=== PATIENT | female | born 1980 | race American Indian/Alaskan Native ===

== ENCOUNTER 2019-09-10 17:46 | Emergency (ER) | payer OTHER ==
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
[2019-09-10] MEDS ORDERED: SODIUM CHLORIDE 0.9% 1000 ML 1,000 ML ONE (18:04)
--- NOTE | 2019-09-10 18:40 | XRay Report ---
CHEST 2 VIEWS INDICATION / CLINICAL INFORMATION: Chest pain. COMPARISON: None available. FINDINGS: SUPPORT DEVICES: None. HEART / MEDIASTINUM: No significant abnormality. LUNGS / PLEURA: No significant pulmonary or pleural abnormality. No pneumothorax. ADDITIONAL FINDINGS: No significant additional findings. IMPRESSION: 1. No acute findings. Signer Name: Rajendra Shelton MD Signed: 09/10/2019 6:35 PM Workstation Name: [id number]
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
[2019-09-10 20:54] VITALS: BP 108/55
== END 2019-09-10 21:04 | disposition home or self-care (01) ==
LOC: ED 17:46
DX: S20.219A Contusion of unspecified front wall of thorax, initial encounter (principal); R51 Headache; Z79.899 Other long term (current) drug therapy; V49.49XA Driver injured in collision with other motor vehicles in traffic accident, initial encounter; Y93.89 Activity, other specified; Y92.410 Unspecified street and highway as the place of occurrence of the external cause; Y99.8 Other external cause status
CPT/HCPCS: 71046; 99283; J7030